=== PATIENT | male | born 1960 | race Caucasian/White ===

== ENCOUNTER 2022-08-21 10:13 | Outpatient (CLI) | payer BC, SELFPAY ==
--- NOTE | ~2022-08-21 | XR_ITS ---
AP and lateral views of the left hip Clinical history: Pain Findings: No acute fracture or dislocation is seen. Osseous alignment is anatomic. Left hip and left SI joint are preserved. Soft tissues are unremarkable. Impression: No significant abnormality is seen. Reviewed, dictated and finalized at [facility]. SCRUBBER Impression: No significant abnormality is seen.
== END 2022-08-21 10:14 | disposition home or self-care (01) ==
PROVIDERS: PCP Emergency Medicine; Visit Provider Emergency Medicine
DX: M25.552 Pain in left hip (principal)
CPT/HCPCS: 73502

== ENCOUNTER 2022-10-28 08:04 | Outpatient (CLI) | payer BC, SELFPAY ==
--- NOTE | ~2022-10-28 | XR_ITS ---
Clinical Indication: Pain PA and lateral views of the chest: Comparison: 04/06/2018 Findings: The lungs are clear, without evidence of focal consolidation or pleural effusion. Cardiome diastinal silhouette is within normal limits. Calcified right paratracheal lymph nodes are unchanged. Bones and soft tissues are unremarkable. Impression: Clear lungs. Stable calcified mediastinal lymph nodes, as above. Reviewed, dictated and finalized at location . Impression: Clear lungs. Stable calcified mediastinal lymph nodes, as above.
--- NOTE | ~2022-10-28 | XR_ITS ---
Thoracic spine: Clinical Indication: Pain AP and lateral views were performed. No fracture is seen. There is normal alignment of the vertebrae. The intervertebral disc spaces appe ar normal. Calcified right paratracheal lymph nodes are noted. Paravertebral soft tissues otherwise a ppear normal. Impression: No osseous abnormality of the thoracic spine noted. Calcified right paratracheal lymph nodes. Reviewed, dictated and finalized at location . Impression: No osseous abnormality of the thoracic spine noted. Calcified right paratracheal lymph nodes.
== END 2022-10-28 08:05 | disposition home or self-care (01) ==
PROVIDERS: PCP Emergency Medicine; Visit Provider Emergency Medicine
DX: M54.6 Pain in thoracic spine (principal); I89.8 Other specified noninfective disorders of lymphatic vessels and lymph nodes
CPT/HCPCS: 71046; 72072

== ENCOUNTER → 2023-02-11 14:30 | Outpatient (CLI) | payer BC, OTHER, SELFPAY ==
--- NOTE | ~2023-02-11 | CT_ITS ---
CT Scan of the Chest without Contrast: Clinical Indication: Lymphadenopathy Technique: Contiguous sections were acquired throughout the chest without intravenous contrast. Dose reduction technique was used on this scan by utilizing automated exposure control and iterative recon struction technique. The dose-length product (DLP) was 288.92 mGy-cm. Findings: There is no evidence of any significant mediastinal, hilar or axillary lymphadenopathy. Calcified rig ht paratracheal and right hilar lymph nodes are present. The mediastinal soft tissues appear normal. There is no evidence of pleural or pericardial effusion. There are several scattered subcentimeter right lung pulmonary nodules, as well as a calcified right upper lobe granuloma. There is minimal right apical paraseptal emphysema. Large fat-containing left-s ided Bochdalek hernia present. Images through the upper abdomen reveal no abnormalities. Impression: Subcentimeter right lung pulmonary nodules. According to Fleischner Society criteria, for a low-risk patient, no further follow-up required. For a high-risk patient, consider 12 month follow-up CT. Calcified renal stone or right hilar lymph nodes, consistent with prior granulomatous disease. Large fat-containing left-sided Bochdalek hernia. Reviewed, dictated and finalized at location . Impression: Subcentimeter right lung pulmonary nodules. According to Fleischner Society cri teria, for a low-risk patient, no further follow-up required. For a high-risk p atient, consider 12 month follow-up CT. Calcified renal stone or right hilar lymph nodes, consistent with prior granulo matous disease. Large fat-containing left-sided Bochdalek hernia.
== END ==
PROVIDERS: PCP Emergency Medicine; Visit Provider Internal Medicine Pulmonary Disease
DX: R59.0 Localized enlarged lymph nodes (principal); F17.211 Nicotine dependence, cigarettes, in remission; K44.9 Diaphragmatic hernia without obstruction or gangrene
CPT/HCPCS: 71250

== ENCOUNTER 2023-03-01 09:52 | Outpatient (CLI) | payer BC, OTHER, SELFPAY ==
--- NOTE | ~2023-03-01 | XR_ITS ---
EXAMINATION: XR knee RT min 4V DATE: 03/01/2023 10:12 INDICATION: Right knee pain TECHNIQUE: Four views of the right knee were obtained. COMPARISON: None. FINDINGS: Alignment is normal. No fracture or osteochondral lesion. There is mild tricompartmental os teoarthritis characterized by tiny marginal osteophytes. There is a small knee joint effusion. Soft t issues are unremarkable. Changes of prior ACL surgery are noted. IMPRESSION: 1. No acute osseous abnormality. Reviewed, dictated and finalized at location B.
== END 2023-03-01 09:53 ==
LOC: MICIMG 09:55
PROVIDERS: PCP Emergency Medicine; Visit Provider Emergency Medicine
DX: S89.91XA Unspecified injury of right lower leg, initial encounter (principal); X58.XXXA Exposure to other specified factors, initial encounter
CPT/HCPCS: 73564